=== PATIENT | female | born 1995 | race Caucasian/White ===

== ENCOUNTER 2016-05-18 05:33 | Emergency (ER) | payer BC ==
[~2016-05-18] VITALS: Ht 177.8 cm; Wt 65.9 kg
[~2016-05-18 05:33] MED LIST: CEPHALEXIN500 M1 PO
[2016-05-18 05:37] VITALS: BP 110/33; TEMP 98.2
[2016-05-18 06:22] LABS: HEMATOCRIT 43.2 % (37.0-47.0); HEMOGLOBIN 14.5 g/dl (12.5-16.0); MEAN CELL VOLUME 87 fl (80.0-100.0); MEAN CORPUSCULAR HEMOGLOBIN 29 pg (27.0-31.0); MEAN CORPUSCULAR HGB CONC 34 g/dl (33.0-37.0); MEAN PLATELET VOLUME 10.5 fl (7.4-10.4); PLATELET COUNT 189 K/mm3 (130-400); RED BLOOD COUNT 4.99 M/mm3 (4.10-5.30); REDCELL DISTRIBUTION WIDTH-CV 12.5 % (11.5-14.5); WHITE BLOOD COUNT 12.5 K/mm3 (4.8-10.8)
[2016-05-18 06:28] LABS: PH 7 (5-8); SQUAMOUS EPITHELIAL 0-2 /hpf; URINE APPEARANCE Hazy; URINE BACTERIA None Seen /hpf; URINE BILIRUBIN Negative (NEGATIVE); URINE BLOOD Negative (NEGATIVE); URINE COLOR Yellow; URINE GLUCOSE Negative (NEGATIVE); URINE KETONE Negative (NEGATIVE); URINE RBC 0-2 /hpf; URINE UROBILINOGEN Negative (NEGATIVE); URINE WBC 0-2 /hpf
[2016-05-18 06:29] LABS: ADJUSTED CALCIUM 9.1 mg/dL (8.4-10.2); ALBUMIN 4.6 gm/dL (3.5-5.0); BILIRUBIN,TOTAL 0.9 mg/dL (0.0-1.0); CALCIUM 9.6 mg/dL (8.4-10.2); CREATININE, serum 0.87 mg/dL (0.52-1.25); POTASSIUM 4.3 mmol/L (3.4-5.0); TOTAL PROTEIN 8.3 gm/dL (6.4-8.2)
[2016-05-18 07:01] LABS: ADD PATHOLOGY DIFF REVIEW NO
[2016-05-18 07:11] LABS: BAND 30 % (0-10); NEUTROPHILS 61 % (42.0-75.2); PLATELET ESTIMATE NORMAL (NORMAL); TOTAL CELLS COUNTED 100
[2016-05-18] MEDS ORDERED: ZOFRAN ODT4 MG PO (07:42)
[2016-05-18 07:57] VITALS: PULSE 104
== END 2016-05-18 07:58 | disposition home or self-care (01) ==
LOC: COL.ER 05:33
PROVIDERS: Family Medicine
DX: R11.2 Nausea with vomiting, unspecified (principal)
CPT/HCPCS: J2405; J7030

== ENCOUNTER 2017-06-08 01:29 | Outpatient (CLI) | payer BC ==
[~2017-06-08] VITALS: Ht 172.7 cm; Wt 85.0 kg
[~2017-06-08 01:29] MED LIST changes: +ZOFRAN ODT4 MG PO
[2017-06-08] MEDS ORDERED: PRENATAL MVI (02:08)
[2017-06-08 02:14] VITALS: BP 127/82; PULSE 95; TEMP 98.2
[2017-06-08 03:29] VITALS: BP 124/72; PULSE 72
== END 2017-06-08 03:45 | disposition home or self-care (01) ==
LOC: LDRO 01:29
DX: O62.9 Abnormality of forces of labor, unspecified (principal); Z3A.39 39 weeks gestation of pregnancy

== ENCOUNTER 2018-06-16 05:52 | Emergency (ER) | payer BC ==
[~2018-06-16] VITALS: Ht 177.8 cm; Wt 78.2 kg
[~2018-06-16 05:52] MED LIST changes: +MOTRIN 600600 MG/TAB PO; +PERCOCET 325 MG1 TA2 PO; +PRENATAL MVI
[2018-06-16 06:04] VITALS: TEMP 98.1
[2018-06-16 06:20] LABS: COLLECTION METHOD CLEAN CATCH
[2018-06-16 06:28] LABS: AMORPHOUS CRYSTAL Present /uL; MUCOUS Present /lpf; PH 8 (5-8); SQUAMOUS EPITHELIAL 0-2 /hpf; URINE APPEARANCE Cloudy; URINE BACTERIA Rare /hpf; URINE BILIRUBIN Negative (NEGATIVE); URINE BLOOD 3+ (NEGATIVE); URINE COLOR Yellow; URINE GLUCOSE Negative (NEGATIVE); URINE KETONE Negative (NEGATIVE); URINE LEUKOCYTE ESTERASE Negative (NEGATIVE); URINE NITRATE Negative (NEGATIVE); URINE PROTEIN(semi-quant) 1+ (NEGATIVE); URINE RBC >50 /hpf; URINE UROBILINOGEN Negative (NEGATIVE)
[2018-06-16] MEDS ORDERED: UNISOM SLEEPGEL50 MG PO (06:34)
[2018-06-16] MEDS ORDERED: B COMPLEX #11 TAB PO (06:35)
[2018-06-16 06:50] LABS: HEMOGLOBIN 10.9 g/dl (12.5-16.0); MEAN CELL VOLUME 87 fl (80.0-100.0); MEAN CORPUSCULAR HEMOGLOBIN 29 pg (27.0-31.0); MEAN CORPUSCULAR HGB CONC 34 g/dl (33.0-37.0); MEAN PLATELET VOLUME 10.1 fl (7.4-10.4); PLATELET COUNT 172 K/mm3 (130-400); RED BLOOD COUNT 3.72 M/mm3 (4.10-5.30); REDCELL DISTRIBUTION WIDTH-CV 13.1 % (11.5-14.5)
[2018-06-16 06:51] LABS: HEMATOCRIT 32.5 % (37.0-47.0)
[2018-06-16 07:00] LABS: ALANINE AMINOTRANSFERASE < 6 U/L (9-52); ALBUMIN 3.3 gm/dL (3.5-5.0); ALKALINE PHOSPHATASE 86 U/L (50-136); ANION GAP 9 mmol/L (7-16); AST,SGOT 16 U/L (15-37); BILIRUBIN,TOTAL 0.1 mg/dL (0.0-1.0); BLOOD UREA NITROGEN 10 mg/dL (7-17); CALCIUM 8.9 mg/dL (8.4-10.2); CARBON DIOXIDE 22 mmol/L (22-30); CHLORIDE 105 mmol/L (98-107); CREATININE, serum 0.55 (0.52-1.25); GLUCOSE 89 mg/dL (74-106); POTASSIUM 3.9 mmol/L (3.4-5.0); SODIUM 135 mmol/L (137-145); TOTAL PROTEIN 6.5 gm/dL (6.4-8.2)
[2018-06-16] MEDS ORDERED: PHENERGAN 25 TA25 MG PO (07:16)
[2018-06-16] MEDS ORDERED: NORCO 325 MG-51 TAB PO (07:16)
[2018-06-16 07:36] LABS: EOSINOPHIL 1 % (0-4); LYMPHOCYTE 16 % (20.0-51.0); MYELOCYTE 1 % (0-0); NEUTROPHILS 79 % (42.0-75.2); PLATELET ESTIMATE NORMAL (NORMAL)
[2018-06-16 07:37] LABS: ANISOCYTOSIS 1+
--- NOTE | 2018-06-16 08:25 | NUR ---
FHR baseline 130-135bpm and moderate variability noted. 0818: Acceleration to 145bpm tracing.
[2018-06-16] MEDS ORDERED: CEPHALEXIN500 M1 PO (09:19)
[2018-06-16 09:49] VITALS: BP 108/65; PULSE 82
== END 2018-06-16 09:55 | disposition home or self-care (01) ==
LOC: COL.ER 05:52
PROVIDERS: Emergency Medicine
DX: O26.893 Other specified pregnancy related conditions, third trimester (principal); R10.9 Unspecified abdominal pain; Z3A.30 30 weeks gestation of pregnancy
CPT/HCPCS: J2405; J7030

== ENCOUNTER 2018-08-09 19:21 | Inpatient (IN) | payer BC ==
[2018-08-09] VITALS (11 sets, daily range): BP systolic 106–177; BP diastolic 56–79; PULSE 73–98; TEMP 97.9–98.9
[~2018-08-09 19:21] MED LIST changes: +B COMPLEX #11 TAB PO; +NORCO 325 MG-51 TAB PO; +PHENERGAN 25 TA25 MG PO; +UNISOM SLEEPGEL50 MG PO
[2018-08-09 20:02] LABS: BASO % 0.2 % (0.0-2.0); EOS # 0.1 (0.0-0.7); EOS % 1.1 % (0-4.0); GRAN % 73.2 % (42.2-75.2); HEMATOCRIT 37.4 % (37.0-47.0); HEMOGLOBIN 12.5 g/dl (12.5-16.0); LYMPH # 2.2 (1.2-3.4); LYMPH % 17.4 % (20.0-51.0); MEAN CELL VOLUME 88 fl (80.0-100.0); MEAN CORPUSCULAR HEMOGLOBIN 29 pg (27.0-31.0); MEAN CORPUSCULAR HGB CONC 33 g/dl (33.0-37.0); MEAN PLATELET VOLUME 10.5 fl (7.4-10.4); MONO # 0.9 (0.1-0.6); PLATELET COUNT 182 K/mm3 (130-400); RED BLOOD COUNT 4.27 M/mm3 (4.10-5.30); REDCELL DISTRIBUTION WIDTH-CV 15.1 % (11.5-14.5)
--- NOTE | 2018-08-09 21:20 | NUR ---
Dr Bueno into room, [facility] complete +1, set up for delivery. [address] Bueno. Pt and spouse loving and pleaed with infant. 2129 Placenta delivers spont and intact with 3 vessell cord. Pitocin 30units in 500cc LR piggybacked into mainline and started at bolus rate per pump.
--- NOTE | 2018-08-09 21:42 | NUR ---
Perineal inspection and repair complete, pericare performed, ice pack to perineum, bed together.
[2018-08-10] VITALS: BP 118/89; PULSE 89
--- NOTE | 2018-08-10 | NUR ---
IV to INT, epidural dc'd. Up to bathroom with slightly unsteady gait. Voids good amount, performs own pericare. clean gown on and ambulates to room without difficulty.
[2018-08-10 01:45] VITALS: BP 108/54; PULSE 100; TEMP 98.5
--- NOTE | 2018-08-10 01:45 | NUR ---
Assumed care at this time.
[2018-08-10 05:30] VITALS: BP 108/54; PULSE 100; TEMP 98.5
[2018-08-10 08:30] VITALS: BP 122/54; PULSE 85; TEMP 98.2
--- NOTE | 2018-08-10 08:30 | NUR ---
Rests in bed, alert. Questions offered and answered. Request pain medication.
--- NOTE | 2018-08-10 09:48 | NUR ---
Initial visit; Parents thanked Subsorter for offering congratulations and God's blessings for the of their son. Subsorter thanked family for choosing [facility].
[2018-08-10 12:30] VITALS: BP 114/58; PULSE 74; TEMP 97.9
--- NOTE | 2018-08-10 12:30 | NUR ---
Rests in bed, alert. Family at bedside. 1247 Ibuprofen 800 mg given per request and as ordered.
[2018-08-10 21:40] VITALS: BP 117/70; PULSE 81; TEMP 98.4
--- NOTE | 2018-08-11 03:15 | NUR ---
Assumed care at this time.
[2018-08-11 08:49] VITALS: BP 119/63; PULSE 65; TEMP 97.6
[2018-08-11] MEDS ORDERED: IBU800 M1 PO (09:46)
== END 2018-08-11 13:55 | disposition home or self-care (01) | DRG 807 ==
LOC: LDRO 19:21 → LDR 19:41 → OB 08-10 00:30
PROVIDERS: ADMIT Obstetrics & Gynecology
PROC: 10E0XZZ Delivery of Products of Conception, External Approach (ICD-10-PCS; principal; 2018-08-09)
PROC: 0KQM0ZZ Repair Perineum Muscle, Open Approach (ICD-10-PCS; 2018-08-09)
DX: O70.1 Second degree perineal laceration during delivery (principal); Z37.0 Single live birth; Z3A.37 37 weeks gestation of pregnancy
CPT/HCPCS: J2590; J2795

== ENCOUNTER → 2019-09-06 | Outpatient (CLI) | payer BC ==
[~2019-09-06] MED LIST changes: +IBU800 M1 PO
== END ==
LOC: ZCOL.LAB 14:51
DX: Z20.828 Contact with and (suspected) exposure to other viral communicable diseases (principal)

== ENCOUNTER 2020-10-16 11:41 | Outpatient (CLI) | payer OTHER ==
[2020-10-16 12:20] VITALS: BP 116/63; PULSE 96; TEMP 98.2
[2020-10-16 13:00] VITALS: BP 101/58; PULSE 96
[2020-10-16 13:30] VITALS: BP 102/60; PULSE 93
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
--- NOTE | 2020-10-16 13:59 | NUR ---
1558 PATIENT RESTS IN. DENIES NEEDS OR PAIN. NO BLEEDING NOTED.
[2020-10-16 14:00] VITALS: BP 99/56; PULSE 86
[2020-10-16 14:58] VITALS: BP 99/58; PULSE 84
--- NOTE | 2020-10-16 15:00 | NUR ---
1500 PATIENT DENIES NNEDS OR PAIN. ALL DISCHARGE INSTRUCTIONS GIVEN TO PATIENT AND WITH VERBAL UNDERSTANDING NOTED.
== END 2020-10-16 15:02 | disposition home or self-care (01) ==
LOC: LDRO 11:41
DX: O9A.219 Injury, poisoning and certain other consequences of external causes complicating pregnancy, unspecified trimester (principal); Z3A.00 Weeks of gestation of pregnancy not specified

== ENCOUNTER 2021-01-19 17:50 | Inpatient (IN) | payer BC ==
[2021-01-19] VITALS (11 sets, daily range): BP systolic 106–133; BP diastolic 55–78; PULSE 75–100; TEMP 98.1–98.7
[~2021-01-19] VITALS: Ht 175.3 cm; Wt 85.0 kg
--- NOTE | 2021-01-19 17:55 | NUR ---
Ambulatory to unit for labor assessment, accompanied by spouse. Pt reports mild contractions for the last couple of days but in last 45min-1 hour much stronger and regular. Oriented to room, monitor, plan of care. Questions invited and answered.
--- NOTE | 2021-01-19 19:23 | NUR ---
Shaun UPPER CUTTER MACHINE into room for epidural placement. pt moved to sit on edge of bed. efm tracing maternal heart rate. PT crying with contractions. See anesthesia record.
[2021-01-19 19:28] LABS: BASO % 0.3 % (0.0-2.0); EOS # 0.1 K/mm3 (0.0-0.7); EOS % 0.6 % (0-4.0); GRAN # 6.5 K/mm3 (1.4-6.5); GRAN % 64.5 % (42.2-75.2); HEMOGLOBIN 11.2 g/dl (12.5-16.0); LYMPH # 2.6 K/mm3 (1.2-3.4); LYMPH % 25.4 % (20.0-51.0); MEAN CELL VOLUME 82 fl (80.0-100.0); MEAN CORPUSCULAR HEMOGLOBIN 27 pg (27.0-31.0); MEAN CORPUSCULAR HGB CONC 33 g/dl (33.0-37.0); MEAN PLATELET VOLUME 10.5 fl (7.4-10.4); MONO # 0.8 K/mm3 (0.1-0.6); MONO % 8.3 % (1.7-9.3); PLATELET COUNT 216 K/mm3 (130-400); RED BLOOD COUNT 4.16 M/mm3 (4.10-5.30); REDCELL DISTRIBUTION WIDTH-CV 14.7 % (11.5-14.5)
[2021-01-19 19:29] LABS: HEMATOCRIT 33.9 % (37.0-47.0)
--- NOTE | 2021-01-19 19:30 | NUR ---
Pt with strong urge to push during epidural placement. Tolerates placement well, crying and screaming with pushing urge with contractions during placement.
--- NOTE | 2021-01-19 19:37 | NUR ---
Dr Bueno into room, pt turned to Semi fowlers and prepped for delivery. [address] Bueno.
--- NOTE | 2021-01-19 19:44 | NUR ---
Placenta delivers spont and intac wtih 3 vessell cord. 30unit pitocin in 500ccLR piggybacked into mainline IV and started @ 333ml/hr per infusion pump. Perineal inspection attempt by Dr Bueno, pt winces and states "that really hurts" Attempt to distract pt with baby unsuccessful pt still winces and moves away. [address] Bueno with return of 250ml clear yellow urine 1947 Dr Bueno instills Lidocaine to perineum. 2degree laceration revealed. Lochia heavy with small clots, fundus firm with soft lower segment, clots expressed with vigourous massage, lochia slows to moderate. Perineal repair begun.
--- NOTE | 2021-01-19 19:52 | NUR ---
perineal repair complete, pericare performed, ice pack to perineum, bed together.
--- NOTE | 2021-01-19 21:00 | NUR ---
Pt's note pt has had thoughts of self harm. When left room I esplained to pt that I noticed on her record that she struggles with anxiety and depression. She acknowledged that she did. I asked "who helps you with that?" She replied "I see Mayra and quan of other people help me as well. My is very supportive" reminded pt that sometimes after a baby is born Mom's get more depressed. She replied "I already have my next appointment scheduled with Mayra.
--- NOTE | 2021-01-19 22:00 | NUR ---
IV to INT. Epidural dc'd. Up to bathroom with slow careful gait. Unable to void @ this time. Performs own pericare. Clean gown on, ambu;ates to room.
[2021-01-20 03:15] VITALS: BP 109/71; PULSE 62; TEMP 97.8
[2021-01-20 07:33] VITALS: BP 114/68; PULSE 76; TEMP 98.2
[2021-01-20] MEDS ORDERED: IBU800 M1 PO (08:36)
[2021-01-20] MEDS ORDERED: PERCOCET 325 MG1 TA2 PO (08:37)
[2021-01-20 19:00] VITALS: BP 111/64; PULSE 67; TEMP 98.6
--- NOTE | 2021-01-20 20:40 | NUR ---
0 HOME PER AMB ACC BY AND CASING BUILDER
== END 2021-01-20 20:40 | disposition home or self-care (01) | DRG 807 ==
LOC: LDRO 17:50 → LDR 17:57 → LDRO 19:01 → OB 22:15
PROVIDERS: Obstetrics & Gynecology; ADMIT Obstetrics & Gynecology
PROC: 10E0XZZ Delivery of Products of Conception, External Approach (ICD-10-PCS; principal; 2021-01-19)
PROC: 0KQM0ZZ Repair Perineum Muscle, Open Approach (ICD-10-PCS; 2021-01-19)
DX: O76 Abnormality in fetal heart rate and rhythm complicating labor and delivery (principal); Z37.0 Single live birth; O70.1 Second degree perineal laceration during delivery; O99.02 Anemia complicating childbirth; D64.9 Anemia, unspecified; O99.344 Other mental disorders complicating childbirth; F32.A Depression, unspecified; O69.81X0 Labor and delivery complicated by cord around neck, without compression, not applicable or unspecified; Z3A.39 39 weeks gestation of pregnancy
CPT/HCPCS: J2590; J2795; J7120

== ENCOUNTER 2022-05-23 08:16 | Inpatient (IN) | payer OTHER ==
[2022-05-23] VITALS (34 sets, daily range): BP systolic 10–137; BP diastolic 52–77; PULSE 66–120; TEMP 97.4–98
[~2022-05-23] VITALS: Ht 175.3 cm; Wt 82.7 kg
[~2022-05-23 08:16] MED LIST changes: +UNISOM25 MG PO
[2022-05-23] MEDS ORDERED: FERROUS SU325 MG/TAB PO (08:41)
--- NOTE | 2022-05-23 09:00 | NUR ---
0820- Pt arrives on unit ambulatory with complaints of SROM at 0715 this morning. Pt changes into gown. 0827- RN to bedside, EFM and TOCO on and tracing. O2 sat monitor on and tracing maternal HR. 0830- FHR not tracing well. Centre at bedside by this RN to be in the 80's, Pt repositioned to LL. 0832- FHR tracing well 130 bpm and recovering back to baseline over 50-60 sec. Moderate variability noted. 0835- SVE by this RN, difficult check, Pt tense and not tolerating well, Cervix posterior. 4/60/-2, moderate amount of clear fluid noted with exam. Pt repositioned to LL. Assessments completed. VSS
[2022-05-23 09:27] LABS: BASO % 0.4 % (0.0-2.0); EOS # 0.2 K/mm3 (0.0-0.7); EOS % 2.4 % (0.0-4.0); GRAN # 6.8 K/mm3 (1.4-6.5); GRAN % 67.3 % (42.2-75.2); HEMOGLOBIN 10.5 g/dl (12.5-16.0); LYMPH # 2.2 K/mm3 (1.2-3.4); LYMPH % 22.3 % (20.0-51.0); MEAN CELL VOLUME 83 fl (80.0-100.0); MEAN CORPUSCULAR HEMOGLOBIN 27 pg (27-31); MEAN CORPUSCULAR HGB CONC 32 g/dl (33.0-37.0); MEAN PLATELET VOLUME 10.6 fl (7.4-10.4); MONO # 0.7 K/mm3 (0.1-0.6); MONO % 6.7 % (1.7-9.3); PLATELET COUNT 228 K/mm3 (130-400); RED BLOOD COUNT 3.93 M/mm3 (4.10-5.30); REDCELL DISTRIBUTION WIDTH-CV 13.9 % (11.5-14.5)
[2022-05-23 09:31] LABS: HEMATOCRIT 32.7 % (37.0-47.0)
--- NOTE | 2022-05-23 10:00 | NUR ---
0946- Pt assisted to sitting position for epidural placement. Shaun, MAYNOR at bedside. FHR tracing intermittently due to maternal posiiton. 0957- Test dose, see anesthesia record. 1002- Pt assisted to LL, EFM and TOCO adjusted to tracing well. Pt tolerated procedure well.
--- NOTE | 2022-05-23 10:45 | NUR ---
1040- Pt continues to be able to feel UCs, mostly on left side. Pt states she thinks her bladder is full. Gonzalez placed without difficulty but Pt able to feel the majority of procedure. SVE /-2, Pt tolerated exam better than first exam but still uncomfortable to Pt. Pt assisted to LL with RLS. Pt encouraged to press epidural bolus button, which is 3rd time since placement. MAYNOR Dunn called by this RN and updated, he will come to bedside to evaluate Pt.
--- NOTE | 2022-05-23 11:30 | NUR ---
1120- MAYNOR Dunn at bedside to replace epidural. Pt assisted to sitting on side of bed. FHR and UCs not tracing well due to maternal position. O2 sat monitor on and tracing maternal HR. 1131- Test dose, see anesthesia record. Pt tolerated well. 1137- Pt assisted to LL, EFM and TOCO adjusted, tracing well. O2 sat monitor off Pt.
--- NOTE | 2022-05-23 13:08 | NUR ---
1258- Dr Lyman to bedside, SVE complete/100/+1. Pt and room prepped for delivery. Katie, Nursery RN at bedside. 1302- Gonzalez out without difficulty. Pt begins pushing with UCs. 1308- of viable female infant. Cord clamped and cut. Infant to mother's abd, tended to by nursery RN. 2nd degree repair by . 1316- Spont. delivery of placenta, fundus massaged by MD, bleeding WNL at this time. Pericare completed. Clean chux and ice pack under Pt. Pt repositioned to high fowlers for comfort. [id number] at this time.
[2022-05-24] MEDS ORDERED: PERCOCET 325 MG1 TA2 PO (08:53)
[2022-05-24] MEDS ORDERED: MOTRIN 800800 MG/TAB PO (08:53)
[2022-05-24 09:22] VITALS: BP 112/63; PULSE 68; TEMP 97.5
--- NOTE | 2022-05-24 14:34 | NUR ---
PATIENT GIVEN DISCHARGE INSTRUCTIONS AND INFORMED HER TO CALL [facility] TO SCHEDULE A 6 WEEK FOLLOW UP APPOINTMENT.
== END 2022-05-24 15:11 | disposition home or self-care (01) | DRG 807 ==
LOC: LDRO 08:16 → LDR 08:25 → OB 16:45
PROVIDERS: ADMIT Obstetrics & Gynecology
PROC: 10E0XZZ Delivery of Products of Conception, External Approach (ICD-10-PCS; principal; 2022-05-23)
PROC: 0KQM0ZZ Repair Perineum Muscle, Open Approach (ICD-10-PCS; 2022-05-23)
DX: O69.81X0 Labor and delivery complicated by cord around neck, without compression, not applicable or unspecified (principal); Z37.0 Single live birth; Z3A.38 38 weeks gestation of pregnancy; O70.1 Second degree perineal laceration during delivery; O99.02 Anemia complicating childbirth; D64.9 Anemia, unspecified; Z23 Encounter for immunization
CPT/HCPCS: J2405; J2590; J2795; J7120